=== PATIENT | male | born 1980 | race Caucasian/White ===

== ENCOUNTER 2022-01-13 08:08 | Emergency (ER) | payer OTHER ==
[~2022-01-13] VITALS: Ht 167.6 cm; Wt 88.0 kg
[2022-01-13 08:14] VITALS: BP 137/78
--- NOTE | 2022-01-13 08:22 | NUR ---
Patient ambulated to bed 07 with steady/even gait.
--- NOTE | 2022-01-13 08:30 | NUR ---
41 y/o male, c/o intermittent headache x 1 week that worsen this morning. Patient states 10/10, sharp/constant, radiating to right side of head. Reports inermittent nausea; denies vomiting, dizziness, blurry vision, fever, chills. States taking Excedrin 400mg prior to arrival with relief. Bed locked in lowest position, side rails x 1. pmh: denies nka med: excedrin
[2022-01-13] MEDS ORDERED: SUMAtriptan succinate 50 MG TAB PO ONE (09:35)
--- NOTE | 2022-01-13 09:37 | NUR ---
Patient taken via wheelchair for CT scan.
--- NOTE | 2022-01-13 09:45 | NUR ---
Patient returned from CT by wheelchair.
--- NOTE | 2022-01-13 09:54 | NUR ---
Patient placed on 10L via NRB. SpO2 100%. RR even/unlabored.
--- NOTE | 2022-01-13 10:21 | NUR ---
Patient states "It's much better now. My pain is at a 2." 10L via NRB in place.
[2022-01-13 10:22] VITALS: BP 137/78
--- NOTE | 2022-01-13 10:28 | NUR ---
Dr. Jaimes is reevaluating patient at bedside
[2022-01-13] MEDS ORDERED: IMI25 PO (10:33)
--- NOTE | 2022-01-13 10:43 | NUR ---
Patient discharged with v/s stable. Written and verbal after care instructions given and explained for Cluster Headache. Patient alert, oriented and verbalized understanding of instructions. Ambulatory with steady gait. All questions addressed prior to discharge. ID band removed. Patient advised to follow up with PMD. Rx of Imitrex given. Patient educated on indication of medication including possible reaction and side effects. Opportunity to ask questions provided and answered.
== END 2022-01-13 10:43 | disposition home or self-care (01) ==
LOC: MED 08:08
DX: R51.9 Headache, unspecified (principal); H53.149 Visual discomfort, unspecified; Z79.899 Other long term (current) drug therapy
CPT/HCPCS: 70450; 99284